=== PATIENT | female | born 1965 | race Caucasian/White ===

== ENCOUNTER → 2016-12-21 | Outpatient (CLI) | payer MEDICARE, MEDICAID ==
--- NOTE | 2017-01-04 16:02 | WOMENS IMAGING REPORT ---
EXAM DESCRIPTION: BILAT SCREENING MAMMO W/CAD COMPLETED DATE/TIME: 12/21/2016 2:38 pm REASON FOR STUDY: Z12.31, ROUTINE SCREENING MAMMO Z12.31 ENCNTR SCREEN MAMMOGRAM FOR MALIGNANT NEOP LASM OF REFUGIO COMPARISON: None. TECHNIQUE: Standard craniocaudal and mediolateral oblique views of each breast recorded using [employer] acquisition. LIMITATIONS: None. FINDINGS: RIGHT BREAST MASSES: No suspicious masses. CALCIFICATIONS: No new or suspicious calcifications. ARCHITECTURAL DISTORTION: None. DEVELOPING DENSITY: None. ASYMMETRY: None noted. OTHER: No other significant findings. LEFT BREAST MASSES: Indistinct mass in the upper-outer breast, seen on the MLO view, located 9 cm from the nipple . CALCIFICATIONS: No new or suspicious calcifications. ARCHITECTURAL DISTORTION: None. DEVELOPING DENSITY: None. ASYMMETRY: None noted. OTHER: No other significant findings. Read with the assistance of CAD. .[facility] - R2 Cenova Version 1.3 .[facility] - R2 Cenova Version 1.3 .[facility] - R2 Cenova Version 2.4 .[facility] - R2 Cenova Version 2.4 .[facility] - R2 Hospital [employer] Version 9.2 IMPRESSION: Indistinct mass in the upper-outer left breast. No worrisome mammographic findings in t he right breast. BREAST DENSITY: c. The breasts are heterogeneously dense, which may obscure small masses. BIRAD: 0 Incomplete: Needs Additional Imaging Evaluation and/or prior Mammograms for Comparison. RECOMMENDATION: RECOMMENDED FOLLOW-UP: Recommend additional evaluation with compression views, tomos ynthesis imaging, and ultrasound of the left breast. Recommend routine screening mammography of the right breast. The patient will be contacted for additional imaging. COMMENT: The patient has been notified of the results by letter per SA requirements. Additional no tification policies are in place for contacting patient with suspicious or incomplete findings. Quality ID #[id number]: The [employer] recommends an annual screening mammogram for women aged 40 years or over. This facility utilizes a reminder system to ensure that all patients receive reminder letters, and/or direct phone calls for appointments. This includes reminders for routine scr eening mammograms, diagnostic mammograms, or other Breast Imaging Interventions when appropriate. Th is patient will be placed in the appropriate reminder system. The [employer] (ACR) has developed recommendations for screening MRI of the breast s in certain patient populations, to be used in conjunction with mammography. Breast MRI surveillanc e may be appropriate for women with more than 20% lifetime risk of developing breast cancer as deter mined by genetic testing, significant family history of the disease, or history of mantle radiation f or Hodgkins Disease. ACR Practice Guidelines 2008. TECHNICAL DOCUMENTATION: FINDING NUMBER: (1) ASSESSMENT: (1) JOB ID: [id number] [employer]- All Rights Reserved
== END ==
LOC: WI 13:48
PROVIDERS: ATTEND Family Medicine
DX: Z12.31 Encounter for screening mammogram for malignant neoplasm of breast (principal)
CPT/HCPCS: 77067; G0202

== ENCOUNTER 2017-07-24 16:56 | Emergency (ER) | payer OTHER, MEDICAID ==
[2017-07-24] MEDS ORDERED: DIPH/PERTUSS(ACELL)/TETANUS VAC/PF 0.5 ML SYR (>=10YO) IM ONE (17:56)
--- NOTE | 2017-07-24 17:57 | ER Document Report ---
ED Medical Screen (RME) - General Chief Complaint: Leg Injury Stated Complaint: LEG INJURY Time Seen by Provider: 07/24/17 17:51 Mode of Arrival: Ambulatory Information source: Patient Notes: 52-year-old female extensive history of psychiatric issues presents with complaints of right anterior calf laceration the 30 last night. Patient unsure of tetanus status I have greeted and performed a rapid initial assessment of this patient. A comprehensive ED assessment and evaluation of the patient, analysis of test results and completion of the medical decision making process will be conducted by additional ED providers. PHYSICAL EXAMINATION: GENERAL: Well-appearing, well-nourished and in no acute distress. HEAD: Atraumatic, normocephalic. EYES: Pupils equal round extraocular movements intact, conjunctiva are normal. ENT: Nares patent NECK: Normal range of motion LUNGS: No respiratory distress Musculoskeletal: Normal range of motion PSYCH: anxious, rapid speech SKIN: right naterior thigh laceration TRAVEL OUTSIDE OF THE [place] IN LAST 30 DAYS: No - Related Data Allergies/Adverse Reactions: aspirin Allergy (Verified 07/24/17 17:04) Past Medical History Neurological Medical History: Reports: Hx Cerebrovascular Accident Past Surgical History: Reports: Hx Hysterectomy, Hx Orthopedic Surgery - Immunizations Hx Diphtheria, Pertussis, Tetanus Vaccination: Yes Physical Exam - Vital signs Vitals: Temp Pulse Resp BP Pulse Ox 98.4 F 72 20 109/72 91 L 07/24/17 17:13 07/24/17 17:13 07/24/17 17:13 07/24/17 17:13 07/24/17 17:13 Course - Vital Signs Vital signs: Temp Pulse Resp BP Pulse Ox 98.4 F 72 20 109/72 91 L 07/24/17 17:13 07/24/17 17:13 07/24/17 17:13 07/24/17 17:13 07/24/17 17:13
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
[2017-07-24] MEDS ORDERED: LIDOCAINE 1% INJ-PF (10 MG/ML) 30 ML SDV INJ ONE (18:54)
[2017-07-24] MEDS ORDERED: HYDROCODONE/ACETAMINOPHEN 5-325 MG TABLET PO ONE (19:00)
--- NOTE | 2017-07-24 19:35 | RADIOLOGY REPORT (SQ) ---
EXAM DESCRIPTION: ELBOW RIGHT AP/LAT COMPLETED DATE/TIME: 07/24/2017 7:18 pm REASON FOR STUDY: fracture COMPARISON: None. NUMBER OF VIEWS: Two views right elbow. LIMITATIONS: None. FINDINGS: There is no acute or significant bone, joint or soft tissue abnormality. OTHER: No other significant finding. IMPRESSION: NORMAL STUDY. TECHNICAL DOCUMENTATION: JOB ID: [id number]
[2017-07-25 00:31] VITALS: BP 106/75
== END 2017-07-25 00:30 | disposition home or self-care (01) ==
LOC: ER 16:56
DX: S86.921A Laceration of unspecified muscle(s) and tendon(s) at lower leg level, right leg, initial encounter (principal); S81.811A Laceration without foreign body, right lower leg, initial encounter; S50.01XA Contusion of right elbow, initial encounter; S00.12XA Contusion of left eyelid and periocular area, initial encounter; S00.83XA Contusion of other part of head, initial encounter; X58.XXXA Exposure to other specified factors, initial encounter; Y92.009 Unspecified place in unspecified non-institutional (private) residence as the place of occurrence of the external cause; Z23 Encounter for immunization; Z88.6 Allergy status to analgesic agent; Z87.891 Personal history of nicotine dependence
CPT/HCPCS: 99283; 90471; 73070; 12002; J3490; 90715

== ENCOUNTER → 2017-09-27 | Outpatient (CLI) | payer OTHER, MEDICAID ==
--- NOTE | 2017-09-27 13:28 | WOMENS IMAGING REPORT ---
EXAM DESCRIPTION: BONE DENSITY HIP/SPINE COMPLETED DATE/TIME: 09/27/2017 1:19 pm REASON FOR STUDY: OSTEOPOROSIS M81.0 AGE-RELATED OSTEOPOROSIS W/O CURRENT PATHOLOGICAL FRAC COMPARISON: None. TECHNIQUE: Dual-Energy X-ray Absorptiometry (DEXA) of the AP Spine and Hip. LIMITATIONS: None. FINDINGS: LUMBAR SPINE: The bone mineral density (BMD) measured from L1-L4 in the AP projection correlates with a T-score of -1.6, which is osteopenia as defined by the World Health Organization. HIP: The bone mineral density (BMD) measured in the left hip correlates with a T-score of -1.1, which is o steopenia as defined by the World Health Organization. IMPRESSION: 1. LUMBAR SPINE: OSTEOPENIA. 2. HIP: OSTEOPENIA. COMMENT: The World Health Organization defines low BMD as follows: T-score: Normal: Greater than -1.0 Osteopenia: Between -1.0 and -2.5 Osteoporosis: Less than -2.5 without fractures Established osteoporosis: Less than -2.5 with fractures In general, you may wish to consider: Diagnosis Treatment Follow-up DEXA Normal BMD Prevention 2-3 years Osteopenia Prevention/Therapy 1-2 years Osteoporosis Therapy Yearly TECHNICAL DOCUMENTATION: JOB ID: [id number] [employer]- All Rights Reserved Reading location - IP/workstation name: [email or web address]
== END ==
LOC: WI 13:00
PROVIDERS: ATTEND Family Medicine
DX: M81.0 Age-related osteoporosis without current pathological fracture (principal)
CPT/HCPCS: 77080

== ENCOUNTER 2018-03-16 16:57 | Emergency (ER) | payer OTHER, MEDICARE, MEDICAID ==
[2018-03-16 17:23] VITALS: BP 118/88
[2018-03-16] MEDS ORDERED: DIAZEPAM 5 MG TABLET PO ONE (20:21)
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
== END 2018-03-17 08:41 | disposition home or self-care (01) ==
LOC: ER 16:57
DX: F41.9 Anxiety disorder, unspecified (principal); Z59.0 Homelessness; F17.200 Nicotine dependence, unspecified, uncomplicated
CPT/HCPCS: 99284

== ENCOUNTER 2018-03-18 14:50 | Emergency (ER) | payer MEDICARE, MEDICAID ==
--- NOTE | 2018-03-18 15:19 | ER Document Report ---
ED Medical Screen (RME) - General Chief Complaint: Knee Injury Stated Complaint: COUGH Time Seen by Provider: 03/18/18 15:17 Mode of Arrival: Medic Information source: Patient TRAVEL OUTSIDE OF THE [place] IN LAST 30 DAYS: No - HPI Patient complains to provider of: L kneee pain; cough Onset: Other - pt states she fell several weeks ago and still has L knee pain. Also c/o recurrent cough. Denies fever - Related Data Allergies/Adverse Reactions: aspirin Allergy (Verified 03/18/18 14:52) Past Medical History Neurological Medical History: Reports: Hx Cerebrovascular Accident Renal/ Medical History: Denies: Hx Peritoneal Dialysis Past Surgical History: Reports: Hx Hysterectomy, Hx Orthopedic Surgery - Immunizations Hx Diphtheria, Pertussis, Tetanus Vaccination: Yes Physical Exam - Vital signs Vitals: Temp Pulse Resp BP Pulse Ox 98.3 F 71 20 94/59 L 99 03/18/18 15:06 03/18/18 15:06 03/18/18 15:06 03/18/18 15:06 03/18/18 15:06 Course - Vital Signs Vital signs: Temp Pulse Resp BP Pulse Ox 98.3 F 71 20 94/59 L 99 03/18/18 15:06 03/18/18 15:06 03/18/18 15:06 03/18/18 15:06 03/18/18 15:06 Doctor's Discharge - Discharge Referrals: AUGUSTIN MCCLELLAND MD [Primary Care Provider] - Follow up as needed
[2018-03-18 16:13] LABS: ABSOLUTE EOSINOPHILS # (AUTO) 0.1 10^3/uL (0.0-0.6); ABSOLUTE LYMPHOCYTES (AUTO) 1.4 10^3/uL (0.5-4.7); ABSOLUTE MONOCYTES (AUTO) 0.4 10^3/uL (0.1-1.4); ABSOLUTE NEUT (AUTO) 2.3 10^3/uL (1.7-8.2); BASOPHILS % (AUTO) 0.6 % (0-2); EOSINOPHILS % (AUTO) 1.6 % (0-6); HEMATOCRIT 41.7 % (36.0-47.0); HEMOGLOBIN 13.7 g/dL (12.0-15.5); LYMPHOCYTES % (AUTO) 33.4 % (13-45); MEAN CORPUSCULAR HEMOGLOBIN 31.5 pg (27.0-33.4); MEAN CORPUSCULAR HGB CONC 32.8 g/dL (32.0-36.0); MEAN CORPUSCULAR VOLUME 96 fl (80-97); MONOCYTES % (AUTO) 8.7 % (3-13); PLATELET COUNT 255 10^3/uL (150-450); RED BLOOD COUNT 4.35 10^6/uL (3.72-5.28); RED CELL DISTRIBUTION WIDTH 15.2 % (11.5-14.0); SEGMENTED NEUTROPHILS % (AUTO) 55.7 % (42-78); TOTAL CELLS COUNTED % (AUTO) 100 %; WHITE BLOOD COUNT 4.1 10^3/uL (4.0-10.5)
--- NOTE | 2018-03-18 16:23 | RADIOLOGY REPORT (SQ) ---
EXAM DESCRIPTION: KNEE LEFT 3 VIEWS COMPLETED DATE/TIME: 03/18/2018 4:05 pm REASON FOR STUDY: fall COMPARISON: None. EXAM PARAMETERS: NUMBER OF VIEWS: Three views. TECHNIQUE: AP, lateral and oblique radiographic images acquired of the left knee. LIMITATIONS: None. FINDINGS: MINERALIZATION: Normal. BONES: No acute fracture or dislocation. No worrisome bone lesions. JOINTS: No effusion. SOFT TISSUES: No significant soft tissue swelling. No radiopaque foreign body. OTHER: No other significant finding. IMPRESSION: NO FRACTURE. TECHNICAL DOCUMENTATION: JOB ID: [id number] [id number] 2010 [employer]- All Rights Reserved Reading location - IP/workstation name: [email or web address]
--- NOTE | 2018-03-18 16:24 | RADIOLOGY REPORT (SQ) ---
EXAM DESCRIPTION: CHEST 2 VIEWS COMPLETED DATE/TIME: 03/18/2018 4:05 pm REASON FOR STUDY: fall COMPARISON: None. EXAM PARAMETERS: NUMBER OF VIEWS: two views TECHNIQUE: Digital Frontal and Lateral radiographic views of the chest acquired. RADIATION DOSE: NA LIMITATIONS: none FINDINGS: LUNGS AND PLEURA: No consolidation, masses or pneumothorax. No pleural effusion. MEDIASTINUM AND HILAR STRUCTURES: No masses or contour abnormalities. HEART AND VASCULAR STRUCTURES: Heart normal size. No evidence for failure. BONES: No acute findings. HARDWARE: None in the chest. OTHER: No other significant finding. IMPRESSION: NO ACUTE RADIOGRAPHIC FINDING IN THE CHEST. TECHNICAL DOCUMENTATION: JOB ID: [id number] [place]-72 2010 [employer]- All Rights Reserved Reading location - IP/workstation name: [email or web address]
[2018-03-18 16:28] LABS: ALANINE AMINOTRANSFERASE 25 U/L (9-52); ALKALINE PHOSPHATASE 45 U/L (38-126); ANION GAP 9 (5-19); ASPARTATE AMINO TRANSFERASE 24 U/L (14-36); BILIRUBIN,DIRECT 0.1 mg/dL (0.0-0.4); BILIRUBIN,TOTAL 0.5 mg/dL (0.2-1.3); BLOOD UREA NITROGEN 15 mg/dL (7-20); CALCIUM 9.4 mg/dL (8.4-10.2); CARBON DIOXIDE 21 mmol/L (22-30); CHLORIDE 111 mmol/L (98-107); GLUCOSE 78 mg/dL (75-110); POTASSIUM 4.4 mmol/L (3.6-5.0); SODIUM 140.6 mmol/L (137-145); TOTAL PROTEIN 6.7 g/dL (6.3-8.2)
--- NOTE | 2018-03-18 17:45 | ER Document Report ---
ED General - General Chief Complaint: Knee Injury Stated Complaint: COUGH Time Seen by Provider: 03/18/18 15:17 Mode of Arrival: Medic Information source: Patient Notes: Patient is a 52-year-old female with past medical history as recorded including multiple bilateral knee surgeries, foot surgeries, left arm surgeries, traumatic brain injury, post traumatic stress disorder, and a chronic cough who states around 1-1/2 weeks ago she was walking and fell onto her left knee. Patient has a prosthetic right knee. She denies any pain to her right knee. She has been walking on this left knee but states it is painful. She denies pain to any other location. In triage she also endorsed a chronic nonproductive cough. She denies any chest pain, leg swelling, or fever. TRAVEL OUTSIDE OF THE [place] IN LAST 30 DAYS: No - HPI Onset: Other - See above Onset/Duration: Sudden Quality of pain: Achy Severity: Mild Pain Level: 1 Associated symptoms: Other - See above Exacerbated by: Denies Relieved by: Denies Similar symptoms previously: Yes Recently seen / treated by doctor: No - Related Data Allergies/Adverse Reactions: aspirin Allergy (Verified 03/18/18 14:52) Past Medical History - General Information source: Patient - Social History Smoking Status: Current Every Day Smoker Chew tobacco use (# tins/day): - Normally Vape Frequency of alcohol use: None Drug Abuse: None Family History: Reviewed & Not Pertinent Patient has suicidal ideation: No Patient has homicidal ideation: No Neurological Medical History: Reports: Hx Cerebrovascular Accident Renal/ Medical History: Denies: Hx Peritoneal Dialysis Past Surgical History: Reports: Hx Hysterectomy, Hx Orthopedic Surgery - Immunizations Hx Diphtheria, Pertussis, Tetanus Vaccination: Yes Review of Systems - Review of Systems Constitutional: denies: Fever EENT: Nose congestion. denies: Eye discharge, Nose discharge Cardiovascular: denies: Chest pain, Palpitations Respiratory: Cough. denies: Short of breath Gastrointestinal: denies: Vomiting Genitourinary: denies: Dysuria Musculoskeletal: denies: Leg swelling Skin: Other - no hives. denies: Rash Neurological/Psychological: Other - no slurred speech -: Yes All other systems reviewed and negative Physical Exam - Vital signs Vitals: Temp Pulse Resp BP Pulse Ox 98.3 F 71 20 94/59 L 99 03/18/18 15:06 03/18/18 15:06 03/18/18 15:06 03/18/18 15:06 03/18/18 15:06 Notes: Reviewed vital signs and nursing note as charted by RN. CONSTITUTIONAL: Alert and oriented and responds appropriately to questions. Well -appearing; well-nourished; partner dog at bedside in the bed HEAD: Normocephalic; atraumatic EYES: PERRL; Conjunctivae clear, sclerae non-icteric ENT: Normal nose; no rhinorrhea; moist mucous membranes NECK: Supple without meningismus; non-tender; no cervical lymphadenopathy, no masses CARD: Regular rate and rhythm; no murmurs; symmetric distal pulses RESP: Normal chest excursion without splinting or tachypnea; breath sounds clear and equal bilaterally; no wheezes, no rhonchi, no rales ABD/GI: Normal bowel sounds; non-distended; soft, non-tender BACK: The back appears normal and is non-tender to palpation, there is no CVA tenderness EXT: Normal ROM in all joints; some mild tenderness to palpation around the left knee with no obvious deformity or ligamentous laxity SKIN: No acute lesions noted NEURO: Moves all extremities equally; Motor and sensory function intact PSYCH: The patient's mood and manner are appropriate. Grooming and personal hygiene are appropriate. Course - Re-evaluation Re-evalutation: Given the history and physical examination and x-ray of the knee, chest, and laboratory work ordered in triage. Patient has no chest pain. No calf pain or leg swelling. I do believe pulmonary embolism and dissection to be unlikely. 03/18/18 17:44 X-rays of the chest and knee as recorded. No obvious pneumonias. No obvious lung lesions present. No obvious knee fractures. Patient is comfortable going home. I believe this is a reasonable option. Patient will be discharged home with strict return precautions. Orthopedic follow-up has been provided. - Vital Signs Vital signs: Temp Pulse Resp BP Pulse Ox 98.3 F 71 20 94/59 L 99 03/18/18 15:06 03/18/18 15:06 03/18/18 15:06 03/18/18 15:06 03/18/18 15:06 - Laboratory Result Diagrams: 03/18/18 15:35 03/18/18 15:35 Laboratory results interpreted by me: 03/18/18 03/18/18 15:35 15:35 RDW 15.2 H Chloride 111 H Carbon Dioxide 21 L Discharge - Discharge Clinical Impression: Cough Contusion of left knee Qualifiers: Encounter type: initial encounter Qualified Code(s): S80.02XA - Contusion of left knee, initial encounter Condition: Good Disposition: HOME, SELF-CARE Additional Instructions: Come back immediately for any worsening knee pain, knee swelling, redness, fever , vomiting, worsening cough, chest pain, persistent vomiting, shortness of breath, or any other acute problems. Please follow-up with your primary care physician, your orthopedic surgeon, or with the orthopedic surgeon we have referred you to. Referrals: AUGUSTIN MCCLELLAND MD [Primary Care Provider] - Follow up as needed KIM MARTINEZ MD [ACTIVE STAFF] - Follow up as needed
[2018-03-18 18:17] VITALS: BP 92/60
== END 2018-03-18 18:16 | disposition home or self-care (01) ==
LOC: ER 14:50
DX: S80.02XA Contusion of left knee, initial encounter (principal); W18.30XA Fall on same level, unspecified, initial encounter; F17.200 Nicotine dependence, unspecified, uncomplicated; Z88.6 Allergy status to analgesic agent; Z90.710 Acquired absence of both cervix and uterus
CPT/HCPCS: 36415; 71046; 80053; 85025; 99284

== ENCOUNTER → 2018-09-21 | Outpatient (CLI) | payer MEDICARE, MEDICAID ==
--- NOTE | 2018-09-21 12:04 | RADIOLOGY REPORT (SQ) ---
EXAM DESCRIPTION: HIP RIGHT AP/LATERAL COMPLETED DATE/TIME: 09/21/2018 11:55 am REASON FOR STUDY: INJURY OF RT ELBOW;ILIAC CREST BONE PAIN;INJURY OF RT WRIST M89.8X8 OTHER SPECIFI ED DISORDERS OF BONE, OTHER SITE S59.901A UNSPECIFIED INJURY OF RIGHT ELBOW, INITIAL ENCOUNTE S69.91 XA UNSP INJURY OF RIGHT WRIST, HAND AND FINGER(S), INI COMPARISON: None. NUMBER OF VIEWS: Two views. TECHNIQUE: AP and frog-leg view of the right hip. LIMITATIONS: None. FINDINGS: MINERALIZATION: Normal. RIGHT HIP: No fracture or dislocation. No worrisome bone lesions. OPPOSITE HIP: No fracture or dislocation. No worrisome bone lesions. SOFT TISSUES: No findings. OTHER: No other significant finding. IMPRESSION: NEGATIVE STUDY OF THE RIGHT HIP. NO RADIOGRAPHIC EVIDENCE OF ACUTE INJURY. COMMENT: Pelvic fractures are often occult on plain radiographs. If strong clinical suspicion for f racture, recommend CT or MR. TECHNICAL DOCUMENTATION: JOB ID: [id number] [employer]- All Rights Reserved Reading location - IP/workstation name: [email or web address]
--- NOTE | 2018-09-21 12:06 | RADIOLOGY REPORT (SQ) ---
EXAM DESCRIPTION: WRIST RIGHT 3 VIEWS COMPLETED DATE/TIME: 09/21/2018 11:55 am REASON FOR STUDY: INJURY OF RT ELBOW;ILIAC CREST BONE PAIN;INJURY OF RT WRIST M89.8X8 OTHER SPECIFI ED DISORDERS OF BONE, OTHER SITE S59.901A UNSPECIFIED INJURY OF RIGHT ELBOW, INITIAL ENCOUNTE S69.91 XA UNSP INJURY OF RIGHT WRIST, HAND AND FINGER(S), INI COMPARISON: None. NUMBER OF VIEWS: Three views. TECHNIQUE: AP, lateral, and oblique radiographic images acquired of the right wrist. LIMITATIONS: None. FINDINGS: MINERALIZATION: Normal. BONES: No acute fracture or dislocation. No worrisome bone lesions. Normal alignment. SOFT TISSUES: No soft tissue swelling. No foreign body. OTHER: There are postsurgical changes in the 1st carpal/metacarpal joint. IMPRESSION: No acute findings. TECHNICAL DOCUMENTATION: JOB ID: [id number] [employer]- All Rights Reserved Reading location - IP/workstation name: [email or web address]
--- NOTE | 2018-09-21 12:07 | RADIOLOGY REPORT (SQ) ---
EXAM DESCRIPTION: ELBOW RIGHT >2 VIEWS COMPLETED DATE/TIME: 09/21/2018 11:55 am REASON FOR STUDY: INJURY OF RT ELBOW;ILIAC CREST BONE PAIN;INJURY OF RT WRIST M89.8X8 OTHER SPECIFI ED DISORDERS OF BONE, OTHER SITE S59.901A UNSPECIFIED INJURY OF RIGHT ELBOW, INITIAL ENCOUNTE S69.91 XA UNSP INJURY OF RIGHT WRIST, HAND AND FINGER(S), INI COMPARISON: 07/24/2017 NUMBER OF VIEWS: Four views. TECHNIQUE: AP, lateral, and both oblique radiographic images acquired of the right elbow. LIMITATIONS: None. FINDINGS: MINERALIZATION: Normal. BONES: No acute fracture or dislocation. No worrisome bone lesions. JOINT: No effusion. SOFT TISSUES: No soft tissue swelling. No foreign body. OTHER: No other significant finding. IMPRESSION: NEGATIVE STUDY OF THE RIGHT ELBOW. NO RADIOGRAPHIC EVIDENCE OF ACUTE INJURY. TECHNICAL DOCUMENTATION: JOB ID: [id number] [employer]- All Rights Reserved Reading location - IP/workstation name: [email or web address]
== END ==
LOC: OD 11:01
PROVIDERS: ATTEND Family Medicine
DX: M89.8X8 Other specified disorders of bone, other site (principal); S59.901A Unspecified injury of right elbow, initial encounter; S69.91XA Unspecified injury of right wrist, hand and finger(s), initial encounter; X58.XXXA Exposure to other specified factors, initial encounter

== ENCOUNTER 2019-08-08 16:31 | Emergency (ER) | payer MEDICARE, MEDICAID ==
--- NOTE | 2019-08-08 18:27 | ER Document Report ---
ED Fall - General Chief Complaint: Fall Injury Stated Complaint: FALL/HIP PAIN Time Seen by Provider: 08/08/19 18:19 Primary Care Provider: AUGUSTIN MCCLELLAND MD [Primary Care Provider] - Follow up as needed TRAVEL OUTSIDE OF THE [place] IN LAST 30 DAYS: No - Related data Allergies/Adverse Reactions: aspirin Allergy (Verified 08/08/19 18:19) Past Medical History - General Information source: Patient - Social History Family History: Reviewed & Not Pertinent - Past Medical History Cardiac Medical History: Reports: None Pulmonary Medical History: Reports: Hx Intubation, Hx Respiratory Failure EENT Medical History: Reports: None Neurological Medical History: Reports: Hx Cerebrovascular Accident - X2 Endocrine Medical History: Reports: None Renal/ Medical History: Reports: Hx Ovarian Cysts, Other - Endometriosis Malignancy Medical History: Reports: Hx Skin Cancer Past Surgical History: Reports: Hx Hysterectomy, Hx Orthopedic Surgery - Immunizations Hx Diphtheria, Pertussis, Tetanus Vaccination: Yes Physical Exam - Vital signs Vitals: Temp Pulse Resp BP Pulse Ox 98.2 F 101 H 16 139/83 H 95 08/08/19 17:08 08/08/19 17:08 08/08/19 17:08 08/08/19 17:08 08/08/19 17:08 Course - Vital Signs Vital signs: Temp Pulse Resp BP Pulse Ox 98.2 F 101 H 16 139/83 H 95 08/08/19 17:08 08/08/19 17:08 08/08/19 17:08 08/08/19 17:08 08/08/19 17:08 Discharge - Discharge Referrals: AUGUSTIN MCCLELLAND MD [Primary Care Provider] - Follow up as needed
--- NOTE | 2019-08-08 18:27 | ER Document Report ---
ED Medical Screen (RME) - General Chief Complaint: Fall Injury Stated Complaint: FALL/HIP PAIN Time Seen by Provider: 08/08/19 18:19 Primary Care Provider: AUGUSTIN MCCLELLAND MD [Primary Care Provider] - Follow up as needed TRAVEL OUTSIDE OF THE [place] IN LAST 30 DAYS: No - Related Data Allergies/Adverse Reactions: aspirin Allergy (Verified 08/08/19 18:19) Past Medical History - Past Medical History Cardiac Medical History: Reports: None Pulmonary Medical History: Reports: Hx Intubation, Hx Respiratory Failure EENT Medical History: Reports: None Neurological Medical History: Reports: Hx Cerebrovascular Accident - X2 Endocrine Medical History: Reports: None Renal/ Medical History: Reports: Hx Ovarian Cysts, Other - Endometriosis Malignancy Medical History: Reports: Hx Skin Cancer GI Medical History: Reports: Hx Endoscopy Musculoskeltal Medical History: Reports Hx Musculoskeletal Deformity, Reports Hx Musculoskeletal Trauma Skin Medical History: Reports None Traumatic Medical History: Reports: Hx Fractures, Hx Pneumothorax Infectious Medical History: Reports: None Past Surgical History: Reports: Hx Hysterectomy, Hx Orthopedic Surgery - 2 allografts left ankle, total reconstruction, left wrist, bilateral thumbs, Other - Chest tubes - Immunizations Immunizations up to date: Yes Hx Diphtheria, Pertussis, Tetanus Vaccination: No Physical Exam - Vital signs Vitals: Temp Pulse Resp BP Pulse Ox 98.2 F 101 H 16 139/83 H 95 08/08/19 17:08 08/08/19 17:08 08/08/19 17:08 08/08/19 17:08 08/08/19 17:08 Course - Vital Signs Vital signs: Temp Pulse Resp BP Pulse Ox 98.2 F 101 H 16 139/83 H 95 08/08/19 17:08 08/08/19 17:08 08/08/19 17:08 08/08/19 17:08 08/08/19 17:08 Doctor's Discharge - Discharge Referrals: AUGUSTIN MCCLELLAND MD [Primary Care Provider] - Follow up as needed
[2019-08-08] MEDS ORDERED: OXYCODONE-ACETAMINOPHEN 5-325 MG TABLET PO ONE (18:35)
[2019-08-08 19:20] LABS: ABSOLUTE LYMPHOCYTES (AUTO) 1.5 10^3/uL (0.5-4.7); ABSOLUTE MONOCYTES (AUTO) 0.4 10^3/uL (0.1-1.4); ABSOLUTE NEUT (AUTO) 4.9 10^3/uL (1.7-8.2); BASOPHILS % (AUTO) 0.5 % (0-2); EOSINOPHILS % (AUTO) 0.6 % (0-6); HEMOGLOBIN 15.2 g/dL (12.0-15.5); LYMPHOCYTES % (AUTO) 21.3 % (13-45); MEAN CORPUSCULAR HEMOGLOBIN 32.3 pg (27.0-33.4); MEAN CORPUSCULAR HGB CONC 34.6 g/dL (32.0-36.0); MEAN CORPUSCULAR VOLUME 93 fl (80-97); MONOCYTES % (AUTO) 6.1 % (3-13); PLATELET COUNT 287 10^3/uL (150-450); RED BLOOD COUNT 4.72 10^6/uL (3.72-5.28); RED CELL DISTRIBUTION WIDTH 14.8 % (11.5-14.0); SEGMENTED NEUTROPHILS % (AUTO) 71.5 % (42-78); TOTAL CELLS COUNTED % (AUTO) 100 %; WHITE BLOOD COUNT 6.8 10^3/uL (4.0-10.5)
[2019-08-08 19:35] LABS: ALBUMIN 5.1 g/dL (3.5-5.0); ALKALINE PHOSPHATASE 64 U/L (38-126); ANION GAP 12 (5-19); ASPARTATE AMINO TRANSFERASE 26 U/L (14-36); BILIRUBIN,DIRECT 0.2 mg/dL (0.0-0.4); BILIRUBIN,TOTAL 0.6 mg/dL (0.2-1.3); BLOOD UREA NITROGEN 18 mg/dL (7-20); CALCIUM 9.9 mg/dL (8.4-10.2); CARBON DIOXIDE 20 mmol/L (22-30); CHLORIDE 108 mmol/L (98-107); GLUCOSE 101 mg/dL (75-110); POTASSIUM 4.5 mmol/L (3.6-5.0); TOTAL PROTEIN 8.1 g/dL (6.3-8.2)
--- NOTE | 2019-08-08 19:50 | RADIOLOGY REPORT (SQ) ---
EXAM DESCRIPTION: KNEE RIGHT 4 VIEWS COMPLETED DATE/TIME: 08/08/2019 7:37 pm REASON FOR STUDY: Fall pain injury COMPARISON: None. NUMBER OF VIEWS: Four views. TECHNIQUE: AP, lateral, and both oblique radiographic images acquired of the right knee. LIMITATIONS: None. FINDINGS: MINERALIZATION: Normal. BONES: No fracture or dislocation. Patellofemoral arthroplasty. JOINT: No effusion. SOFT TISSUES: No soft tissue swelling. No radio-opaque foreign body. OTHER: No other significant finding. IMPRESSION: NEGATIVE STUDY OF THE RIGHT KNEE. NO RADIOGRAPHIC EVIDENCE OF ACUTE INJURY. TECHNICAL DOCUMENTATION: JOB ID: [id number] 2010 [employer]- All Rights Reserved Reading location - IP/workstation name: [email or web address]
--- NOTE | 2019-08-08 19:51 | RADIOLOGY REPORT (SQ) ---
EXAM DESCRIPTION: HIP RIGHT AP/LATERAL COMPLETED DATE/TIME: 08/08/2019 7:37 pm REASON FOR STUDY: Fall pain injury COMPARISON: 09/21/2018 NUMBER OF VIEWS: Two views. TECHNIQUE: AP pelvis and additional frog-leg view of the right hip. LIMITATIONS: None. FINDINGS: MINERALIZATION: Normal. RIGHT HIP: No fracture or dislocation. No worrisome bone lesions. LEFT HIP: No fracture or dislocation. No worrisome bone lesions. PUBIS AND ISCHIUM: No fracture. PELVIS: No fracture. SACRUM: No fracture or dislocation. No worrisome bone lesions. LOWER LUMBAR SPINE: No fracture or dislocation. No worrisome bone lesions. No significant disc disea se. SOFT TISSUES: No findings. OTHER: No other significant finding. IMPRESSION: NEGATIVE STUDY OF THE RIGHT HIP. NO RADIOGRAPHIC EVIDENCE OF ACUTE INJURY. TECHNICAL DOCUMENTATION: JOB ID: [id number] 2010 [employer]- All Rights Reserved Reading location - IP/workstation name: [email or web address]
--- NOTE | 2019-08-08 19:51 | RADIOLOGY REPORT (SQ) ---
EXAM DESCRIPTION: WRIST RIGHT 3 VIEWS COMPLETED DATE/TIME: 08/08/2019 7:37 pm REASON FOR STUDY: Fall pain injury multiple injuries COMPARISON: 09/21/2018 NUMBER OF VIEWS: Three views. TECHNIQUE: AP, lateral, and oblique radiographic images acquired of the right wrist. LIMITATIONS: None. FINDINGS: MINERALIZATION: Normal. BONES: No acute fracture or dislocation. Prior ligament repair at the 1st metacarpophalangeal joint. SOFT TISSUES: No soft tissue swelling. No foreign body. OTHER: No other significant finding. IMPRESSION: NEGATIVE STUDY OF THE RIGHT WRIST. NO RADIOGRAPHIC EVIDENCE OF ACUTE INJURY. TECHNICAL DOCUMENTATION: JOB ID: [id number] 2010 [employer]- All Rights Reserved Reading location - IP/workstation name: [email or web address]
--- NOTE | 2019-08-08 19:53 | RADIOLOGY REPORT (SQ) ---
EXAM DESCRIPTION: FINGER RIGHT COMPLETED DATE/TIME: 08/08/2019 7:37 pm REASON FOR STUDY: fall pain injury finger COMPARISON: None. NUMBER OF VIEWS: Three views. TECHNIQUE: AP, lateral, and oblique images acquired of the right fourth finger. LIMITATIONS: None. FINDINGS: MINERALIZATION: Normal. BONES: No acute fracture or dislocation. No worrisome bone lesions. SOFT TISSUES: No soft tissue swelling. No foreign body. OTHER: No other significant finding. IMPRESSION: NO RADIOGRAPHIC EVIDENCE OF ACUTE INJURY. COMMENT: SITE OF TRAUMA/COMPLAINT MARKED/STAMP COMPLETED: Yes TECHNICAL DOCUMENTATION: JOB ID: [id number] 2010 [employer]- All Rights Reserved Reading location - IP/workstation name: [email or web address]
--- NOTE | 2019-08-08 19:55 | RADIOLOGY REPORT (SQ) ---
EXAM DESCRIPTION: ANKLE RIGHT COMPLETE COMPLETED DATE/TIME: 08/08/2019 7:37 pm REASON FOR STUDY: Fall pain injury COMPARISON: None. NUMBER OF VIEWS: Three views. TECHNIQUE: AP, lateral, and oblique radiographic images acquired of the right ankle. LIMITATIONS: None. FINDINGS: MINERALIZATION: Normal. BONES: No acute fracture or dislocation. No worrisome bone lesions. JOINTS: No effusions. SOFT TISSUES: No soft tissue swelling. No foreign body. OTHER: No other significant finding. IMPRESSION: NEGATIVE STUDY OF THE RIGHT ANKLE. NO RADIOGRAPHIC EVIDENCE OF ACUTE INJURY. TECHNICAL DOCUMENTATION: JOB ID: [id number] 2010 [employer]- All Rights Reserved Reading location - IP/workstation name: [email or web address]
--- NOTE | 2019-08-08 19:57 | RADIOLOGY REPORT (SQ) ---
EXAM DESCRIPTION: RIBS RIGHT W/PA CHEST COMPLETED DATE/TIME: 08/08/2019 7:37 pm REASON FOR STUDY: Fall pain injury COMPARISON: None. TECHNIQUE: Frontal view of the chest and additional views of the right ribs acquired. NUMBER OF VIEWS: Three views LIMITATIONS: None. FINDINGS: FRONTAL CXR: No pneumothorax. No pleural effusion. No atelectasis or infiltrates. RIBS: No displaced rib fractures. No lytic or blastic bony lesions. OTHER: No other significant finding. IMPRESSION: NO PNEUMOTHORAX. NO DISPLACED RIB FRACTURES. COMMENT: SITE OF TRAUMA/COMPLAINT MARKED/STAMP COMPLETED: NO. TECHNICAL DOCUMENTATION: JOB ID: [id number] 2010 [employer]- All Rights Reserved Reading location - IP/workstation name: [email or web address]
--- NOTE | 2019-08-08 19:58 | RADIOLOGY REPORT (SQ) ---
EXAM DESCRIPTION: L SPINE WHOLE COMPLETED DATE/TIME: 08/08/2019 7:37 pm REASON FOR STUDY: Fall pain injury COMPARISON: None. NUMBER OF VIEWS: Five views including obliques. TECHNIQUE: AP, lateral, oblique, and sacral radiographic images acquired of the lumbar spine. LIMITATIONS: None. FINDINGS: MINERALIZATION: Normal. SEGMENTATION: Normal. No transitional anatomy. ALIGNMENT: Levoscoliosis. VERTEBRAE: Maintained height. No fracture or worrisome bone lesion. DISCS: Mild disc narrowing at L4-5 with greater narrowing at L5-S1. Marginal osteophytes are present at L5-S1. POSTERIOR ELEMENTS: Pedicles and facets are intact. No pars defect or posterior arch defects. HARDWARE: None in the spine. PARASPINAL SOFT TISSUES: Normal. PELVIS: Intact as visualized. No fractures or worrisome bone lesions. SI joints intact. OTHER: No other significant finding. IMPRESSION: Mild scoliosis. Degenerative disc disease and spondylosis. TECHNICAL DOCUMENTATION: JOB ID: [id number] 2010 [employer]- All Rights Reserved Reading location - IP/workstation name: [email or web address]
--- NOTE | 2019-08-08 22:22 | ER Document Report ---
ED General - General Chief Complaint: Fall Stated Complaint: FALL/HIP PAIN Time Seen by Provider: 08/08/19 18:19 Primary Care Provider: AUGUSTIN MCCLELLAND MD [PEDIATRICS] - Follow up as needed TRAVEL OUTSIDE OF THE U.S. IN LAST 30 DAYS: No - HPI Notes: Patient is a 54-year-old female with a complicated medical history who presents to the emergency department for evaluation after a fall. She states that her neighbor has "an aggressive [place] Cespedes" that attacked her and her service dog while walking. She states that the dog knocked her down and kept her down. She denies any bite injury. She states she suffered an abrasion but she believes it was from the ground. She complains of pain in her right ribs, her right hip, her right lower back, her right knee, her right ankle. She currently puts her pain at a 4 out of 5. She denies hitting her head, no loss of co nsciousness. No neck pain. No numbness or tingling. She states occasionally her rib pain shoots down and her abdomen. Bearing weight or pressure seems to make her pain worse. - Related Data Allergies/Adverse Reactions: aspirin Allergy (Verified 08/08/19 18:19) Home Medications: chest tube from collapsed lung. cva x 2. intubated Past Medical History - General Information source: Patient - Social History Smoking Status: Current Every Day Smoker Chew tobacco use (# tins/day): No Frequency of alcohol use: Occasional Drug Abuse: None Family History: Reviewed & Not Pertinent Patient has suicidal ideation: No Patient has homicidal ideation: No - Past Medical History Cardiac Medical History: Reports: None Pulmonary Medical History: Reports: Hx Intubation, Hx Respiratory Failure EENT Medical History: Reports: None Neurological Medical History: Reports: Hx Cerebrovascular Accident - X2 Endocrine Medical History: Reports: None Renal/ Medical History: Reports: Hx Ovarian Cysts, Other - Endometriosis Malignancy Medical History: Reports: Hx Skin Cancer GI Medical History: Reports: Hx Endoscopy Musculoskeletal Medical History: Reports Hx Musculoskeletal Deformity, Reports Hx Musculoskeletal Trauma Skin Medical History: Reports None Traumatic Medical History: Reports: Hx Fractures, Hx Pneumothorax Infectious Medical History: Reports: None Past Surgical History: Reports: Hx Hysterectomy, Hx Orthopedic Surgery - 2 allografts left ankle, total reconstruction, left wrist, bilateral thumbs, Other - Chest tubes - Immunizations Immunizations up to date: Yes Hx Diphtheria, Pertussis, Tetanus Vaccination: No Review of Systems - Review of Systems Musculoskeletal: See HPI -: Yes All other systems reviewed and negative Physical Exam - Vital signs Vitals: Temp Pulse Resp BP Pulse Ox 98.2 F 101 H 16 139/83 H 95 08/08/19 17:08 08/08/19 17:08 08/08/19 17:08 08/08/19 17:08 08/08/19 17:08 - Notes Notes: This is a 54-year-old female who appears her stated age in no acute distress. She is mildly disheveled and smells strongly of cigarettes. She has a small superficial abrasion noted on her left hand, no other outward abrasions, ecchy sarah appreciated. Vital signs reviewed, please refer to chart. Head is normocephalic, atraumatic. Pupils equal round, reactive to light. Neck is supple without meningismus. Examination of the spine yields no midline tenderness or step-off. No paraspinal musculature tenderness is appreciated. Heart is regular rate and rhythm. Lungs are clear to auscultation bilaterally. Chest wall excursion is equal bilaterally. Patient is tender to palpation over the anterolateral inferior ribs on the right without any subcutaneous emphysema. Abdomen is soft, nontender, normoactive bowel sounds throughout. Extremities without cyanosis, clubbing. Posterior calves are nontender. Peripheral pulses are equal. Skin is warm and dry. Examination of the right lower extremity yields no obvious deformity or signs of trauma. Passive range of motion is limited secondary to pain, but no obvious deformity, neurovascularly intact distally. Patient actively moves her leg with good strength on range of motion examination. Neurovascularly intact distally. Course - Re-evaluation Re-evalutation: 08/08/19 22:21 Patient presents to the emergency department for evaluation. She had imaging as ordered through triage. Absolutely no acute findings were noted. I will send her home with a small amount of Robaxin and some pain medication. Her images are unremarkable at this time, but she is told if her pain should persist she should have another set of x-rays in 1 to 2 weeks. She voiced understanding was discharged. She is to return to the ED with worsening. - Vital Signs Vital signs: Temp Pulse Resp BP Pulse Ox 98.2 F 101 H 16 139/83 H 95 08/08/19 17:08 08/08/19 17:08 08/08/19 17:08 08/08/19 17:08 08/08/19 17:08 - Laboratory Result Diagrams: 08/08/19 18:46 08/08/19 18:46 Laboratory results interpreted by me: 08/08/19 08/08/19 18:46 18:46 RDW 14.8 H Chloride 108 H Carbon Dioxide 20 L Albumin 5.1 H - Diagnostic Test Radiology reviewed: Reports reviewed Radiology results interpreted by me: 08/08/19 22:21 Ankle X-Ray 08/08/19 18:31 IMPRESSION: NEGATIVE STUDY OF THE RIGHT ANKLE. NO RADIOGRAPHIC EVIDENCE OF ACUTE INJURY. Hip/Pelvis X-Ray 08/08/19 18:31 IMPRESSION: NEGATIVE STUDY OF THE RIGHT HIP. NO RADIOGRAPHIC EVIDENCE OF ACUTE INJURY. Knee X-Ray 08/08/19 18:31 IMPRESSION: NEGATIVE STUDY OF THE RIGHT KNEE. NO RADIOGRAPHIC EVIDENCE OF ACUTE INJURY. Lumbar Spine X-Ray 08/08/19 18:31 IMPRESSION: Mild scoliosis. Degenerative disc disease and spondylosis. Ribs w/Chest X-Ray 08/08/19 18:31 IMPRESSION: NO PNEUMOTHORAX. NO DISPLACED RIB FRACTURES. Finger X-Ray 08/08/19 18:34 IMPRESSION: NO RADIOGRAPHIC EVIDENCE OF ACUTE INJURY. Wrist X-Ray 08/08/19 18:35 IMPRESSION: NEGATIVE STUDY OF THE RIGHT WRIST. NO RADIOGRAPHIC EVIDENCE OF ACUTE INJURY. Discharge - Discharge Clinical Impression: Fall from standing Qualifiers: Encounter type: initial encounter Qualified Code(s): W19.XXXA - Unspecified fall, initial encounter Contusion of right chest wall Qualifiers: Encounter type: initial encounter Qualified Code(s): S20.211A - Contusion of right front wall of thorax, initial encounter Low back strain Qualifiers: Encounter type: initial encounter Qualified Code(s): S39.012A - Strain of muscle, fascia and tendon of lower back, initial encounter Contusion of right hip Qualifiers: Encounter type: initial encounter Qualified Code(s): S70.01XA - Contusion of right hip, initial encounter Contusion of right knee Qualifiers: Encounter type: initial encounter Qualified Code(s): S80.01XA - Contusion of right knee, initial encounter Condition: Stable Disposition: HOME, SELF-CARE Instructions: Contusion ([facility]) Additional Instructions: Rest, stay well-hydrated. Avoid bedrest. No lifting anything heavier than 5 pounds, approximately a gallon of milk. Take medications as prescribed. Watch for dizziness, drowsiness, constipation, particularly with the [place]. Follow-up with your doctor next week. Return to the emergency department if you develop worsening or new concerning symptoms of any sort. Referrals: AUGUSTIN MCCLELLAND MD [PEDIATRICS] - Follow up as needed
[2019-08-08 22:59] VITALS: BP 122/67
== END 2019-08-08 23:10 | disposition home or self-care (01) ==
LOC: ER 16:31
DX: S39.012A Strain of muscle, fascia and tendon of lower back, initial encounter (principal); S70.01XA Contusion of right hip, initial encounter; S20.211A Contusion of right front wall of thorax, initial encounter; S80.01XA Contusion of right knee, initial encounter; S60.512A Abrasion of left hand, initial encounter; R07.81 Pleurodynia; M25.551 Pain in right hip; M25.571 Pain in right ankle and joints of right foot; W54.1XXA Struck by dog, initial encounter; Y93.K1 Activity, walking an animal; M47.816 Spondylosis without myelopathy or radiculopathy, lumbar region; M51.36 Other intervertebral disc degeneration, lumbar region; F17.200 Nicotine dependence, unspecified, uncomplicated; Z88.8 Allergy status to other drugs, medicaments and biological substances
CPT/HCPCS: 99284; 36415; 85025; 80053; 73610; 73140; 73502; 73564; 72110; 71101; 73110; A9270

== ENCOUNTER 2019-09-21 19:22 | Emergency (ER) | payer MEDICARE, MEDICAID ==
--- NOTE | 2019-09-21 19:40 | ER Document Report ---
ED General - General Chief Complaint: Hand Pain Stated Complaint: THUMB PAIN Primary Care Provider: EARNEST JOSEPH MD [Primary Care Provider] - Follow up as needed Notes: Patient is a 54-year-old white female with a past medical history of extensive osteoarthritic issues with a prior surgical reattachment of the left thumb many years ago at [facility] who presents to the emergency department the chief complaint of left thumb pain and swelling began after aggressively cleaning the house 3 nights ago. She states the next day it was a little sore, she rested it and then on the third day it was very sensitive. She states is painful to move there is an area of swelling to the radial edge laterally of the left thumb that has some overlying sensitivity to light touch or wind. States it is a burning sensation in nature. She denies any decreased range of motion or weakness but admits to pain with movement. No blunt injury or trauma. TRAVEL OUTSIDE OF THE [place].S. IN LAST 30 DAYS: No - Related Data Allergies/Adverse Reactions: aspirin Allergy (Verified 08/08/19 18:19) Past Medical History - Social History Smoking Status: Current Every Day Smoker Family History: Reviewed & Not Pertinent Patient has suicidal ideation: No Patient has homicidal ideation: No Pulmonary Medical History: Reports: Hx Intubation, Hx Respiratory Failure Neurological Medical History: Reports: Hx Cerebrovascular Accident - X2 Renal/ Medical History: Reports: Hx Ovarian Cysts Malignancy Medical History: Reports: Hx Skin Cancer GI Medical History: Reports: Hx Endoscopy Musculoskeletal Medical History: Reports Hx Musculoskeletal Deformity, Reports Hx Musculoskeletal Trauma Traumatic Medical History: Reports: Hx Fractures, Hx Pneumothorax Past Surgical History: Reports: Hx Hysterectomy, Hx Orthopedic Surgery - 2 allografts left ankle, total reconstruction, left wrist, bilateral thumbs, Other - Chest tubes - Immunizations Immunizations up to date: Yes Hx Diphtheria, Pertussis, Tetanus Vaccination: No Review of Systems - Review of Systems Musculoskeletal: Joint pain -: Yes All other systems reviewed and negative Physical Exam - Vital signs Vitals: Temp Pulse Resp BP Pulse Ox 97.8 F 100 20 148/94 H 97 09/21/19 19:28 09/21/19 19:28 09/21/19 19:28 09/21/19 19:28 09/21/19 19:28 - General General appearance: Appears well, Alert In distress: None - Respiratory Respiratory status: No respiratory distress - Extremities Hand: Other - Personal Security Specialist strength 5 out of 5 in the left hand as compared with the right. Good capillary refill distal end of the left thumb. There is an area of mild swelling/nodule appearing lesion to the interphalangeal joint on the radial edge that is very sensitive to the touch, even light touch. Patient has full strength of the left thumb and full range of motion of the left thumb with and without resistance. No deformities. 2+ radial on the left. - Neurological Neuro grossly intact: Yes Cognition: Normal Orientation: AAOx4 [place] Coma Scale Eye Opening: Spontaneous María Elena Coma Scale Verbal: Oriented [place] Coma Scale Motor: Obeys Commands María Elena Coma Scale Total: 15 Speech: Normal Motor strength normal: LUE, RUE, LLE, RLE Sensory: Normal - Psychological Associated symptoms: Normal affect, Normal mood - Skin Skin Temperature: Warm Skin Moisture: Dry Skin Color: Normal Course - Re-evaluation Re-evalutation: 09/21/19 21:20 X-ray showing degenerative changes and osteophytes. There is a questionable subtle fracture of the most prominent osteophyte overlying where the area of the patient being tender. We will place her in a splint/immobilizer and she will follow-up with Dr. Coombs, her orthopedist in [place] who is affiliated with [facility] per her preference. Give her a short course of pain medications. Discussed necessary immobilization and the importance of outpatient follow-up with the hand surgeon. Advise she return here or any ER immediately with any new, persistent or worsening symptoms. She verbalized understood and agreed. - Vital Signs Vital signs: Temp Pulse Resp BP Pulse Ox 97.8 F 100 20 148/94 H 97 09/21/19 19:28 09/21/19 19:28 09/21/19 19:28 09/21/19 19:28 09/21/19 19:28 Discharge - Discharge Clinical Impression: Osteophyte Qualifiers: Osteophyte location: hand Laterality: unspecified laterality Qualified Code(s): M25.749 - Osteophyte, unspecified hand Osteoarthritis of finger Qualifiers: Laterality: unspecified laterality Qualified Code(s): M19.049 - Primary osteoarthritis, unspecified hand Joint pain Qualifiers: Joint pain location: hand Laterality: unspecified laterality Qualified Code(s): M25.549 - Pain in joints of unspecified hand Condition: Stable Disposition: HOME, SELF-CARE Instructions: Arthritis ([facility]) Additional Instructions: Please follow-up with your orthopedic doctor as discussed within the next week for reevaluation and repeat x-rays to determine today's findings or lack thereof. Please remain in the immobilizer until cleared by orthopedics. Please return here or any ER immediately with any new, persistent or worsening symptoms. Referrals: EARNEST JOSEPH MD [Primary Care Provider] - Follow up as needed
[2019-09-21] MEDS ORDERED: LIDOCAINE 2% JELLY 5 ML TUBE TOP ONE (20:27)
--- NOTE | 2019-09-21 20:38 | RADIOLOGY REPORT (SQ) ---
EXAM DESCRIPTION: CLINICAL HISTORY: 54 years Female L thumb injury COMPARISON: None. TECHNIQUE: Left thumb, three views FINDINGS: There is degenerative change with spurring and irregularity at the interphalangeal joint of the thumb. Nondisplaced fracture through marginal osteophyte is not excluded. No radiopaque foreign object noted. IMPRESSION: Degenerative change at the IP joint of the thumb with some osteophytosis. The possibility of a nondisplaced fracture through the lateral osteophyte is not excluded
[2019-09-21] MEDS ORDERED: HYDROCODONE/ACETAMINOPHEN 5-325 MG (6 TAB/ER DISP) PO PRN (21:21)
[2019-09-21 21:49] VITALS: BP 119/76
== END 2019-09-21 21:51 | disposition home or self-care (01) ==
LOC: ER 19:22
DX: M25.749 Osteophyte, unspecified hand (principal); M19.049 Primary osteoarthritis, unspecified hand; M25.549 Pain in joints of unspecified hand; M79.642 Pain in left hand; M79.89 Other specified soft tissue disorders; X58.XXXA Exposure to other specified factors, initial encounter; F17.200 Nicotine dependence, unspecified, uncomplicated
CPT/HCPCS: 99283; 73140; A9270

== ENCOUNTER 2019-11-14 17:07 | Emergency (ER) | payer MEDICARE, MEDICAID ==
[2019-11-14 19:18] LABS: APPEARANCE,URINE CLEAR; BILIRUBIN,URINE NEGATIVE (NEGATIVE); COLOR,URINE STRAW; GLUCOSE, URINE NEGATIVE (NEGATIVE); KETONES,URINE NEGATIVE (NEGATIVE); LEUKOCYTE ESTERASE,URINE NEGATIVE (NEGATIVE); NITRITE,URINE NEGATIVE (NEGATIVE); PROTEIN,URINE NEGATIVE (NEGATIVE); URINE SPECIFIC GRAVITY 1.006; UROBILINOGEN,URINE NEGATIVE mg/dL (<2.0)
[2019-11-14 19:33] LABS: URINE AMPHETAMINES SCREEN NEGATIVE; URINE BARBITURATES SCREEN NEGATIVE; URINE BENZODIAZEPINES SCREEN NEGATIVE; URINE COCAINE SCREEN NEGATIVE; URINE MARIJUANA (THC) SCREEN NEGATIVE; URINE METHADONE SCREEN NEGATIVE; URINE PHENCYCLIDINE SCREEN NEGATIVE
[2019-11-14 19:56] LABS: ABSOLUTE EOSINOPHILS # (AUTO) 0.1 10^3/uL (0.0-0.6); ABSOLUTE LYMPHOCYTES (AUTO) 1.3 10^3/uL (0.5-4.7); ABSOLUTE MONOCYTES (AUTO) 0.5 10^3/uL (0.1-1.4); ABSOLUTE NEUT (AUTO) 4.1 10^3/uL (1.7-8.2); BASOPHILS % (AUTO) 0.3 % (0-2); HEMOGLOBIN 14.3 g/dL (12.0-15.5); LYMPHOCYTES % (AUTO) 21.4 % (13-45); MEAN CORPUSCULAR HEMOGLOBIN 31.5 pg (27.0-33.4); MEAN CORPUSCULAR HGB CONC 33.2 g/dL (32.0-36.0); MEAN CORPUSCULAR VOLUME 95 fl (80-97); MONOCYTES % (AUTO) 7.9 % (3-13); PLATELET COUNT 235 10^3/uL (150-450); RED BLOOD COUNT 4.52 10^6/uL (3.72-5.28); RED CELL DISTRIBUTION WIDTH 15.6 % (11.5-14.0); SEGMENTED NEUTROPHILS % (AUTO) 69.4 % (42-78); TOTAL CELLS COUNTED % (AUTO) 100 %; WHITE BLOOD COUNT 5.9 10^3/uL (4.0-10.5)
--- NOTE | 2019-11-14 20:02 | ER Document Report ---
ED Psych Disorder / Suicide <SURJIT DONAHUE - Last Filed: 11/14/19 20:42> - General TRAVEL OUTSIDE OF THE [place].S[place] IN LAST 30 DAYS: No - HPI Quality of pain: No pain Severity: Moderate <ANIA SORTO - Last Filed: 11/15/19 03:02> - General Chief Complaint: Psych Problem Stated Complaint: IVC Time Seen by Provider: 11/14/19 18:22 Primary Care Provider: [facility] [Outside] - Follow up as needed JOAO DE LA CRUZ FNP-C [Primary Care Provider] - Follow up as needed Notes: 54 year old female arrives on IVC papers. H/O borderline PD. Here with support animal. No complaints voiced to me and alert and nontoxic. She denies SI. She has a h/o anxiety and homelessness also. (ANIA SORTO) - Related Data Allergies/Adverse Reactions: aspirin Allergy (Verified 11/14/19 19:41) Past Medical History - Social History Smoking Status: Unknown if Ever Smoked Family History: Reviewed & Not Pertinent Pulmonary Medical History: Reports: Hx Intubation, Hx Respiratory Failure Neurological Medical History: Reports: Hx Cerebrovascular Accident - X2 Renal/ Medical History: Reports: Hx Ovarian Cysts Malignancy Medical History: Reports: Hx Skin Cancer GI Medical History: Reports: Hx Endoscopy Musculoskeletal Medical History: Reports Hx Musculoskeletal Deformity, Reports Hx Musculoskeletal Trauma Traumatic Medical History: Reports: Hx Fractures, Hx Pneumothorax Past Surgical History: Reports: Hx Hysterectomy, Hx Orthopedic Surgery - 2 allografts left ankle, total reconstruction, left wrist, bilateral thumbs, Other - Chest tubes - Immunizations Immunizations up to date: Yes Hx Diphtheria, Pertussis, Tetanus Vaccination: No <ANIA SORTO - Last Filed: 11/15/19 03:02> Review of Systems - Review of Systems Constitutional: No symptoms reported EENT: No symptoms reported Cardiovascular: No symptoms reported Respiratory: No symptoms reported Gastrointestinal: No symptoms reported Genitourinary: No symptoms reported Female Genitourinary: No symptoms reported Musculoskeletal: No symptoms reported Skin: No symptoms reported Hematologic/Lymphatic: No symptoms reported Neurological/Psychological: No symptoms reported <ANIA SORTO - Last Filed: 11/15/19 03:02> Physical Exam - Vital signs Interpretation: Normal - General General appearance: Appears well, Alert - HEENT Head: Normocephalic, Atraumatic Eyes: Normal Pupils: PERRL - Respiratory Respiratory status: No respiratory distress Chest status: Nontender Breath sounds: Normal Chest palpation: Normal - Cardiovascular Rhythm: Regular Heart sounds: Normal auscultation Murmur: No - Abdominal Inspection: Normal Distension: No distension Bowel sounds: Normal Tenderness: Nontender Organomegaly: No organomegaly - Back Back: Normal, Nontender - Extremities General upper extremity: Normal inspection, Nontender, Normal color, Normal ROM, Normal temperature General lower extremity: Normal inspection, Nontender, Normal color, Normal ROM, Normal temperature, Normal weight bearing. No: Layton's sign - Neurological Neuro grossly intact: Yes Cognition: Normal Orientation: AAOx4 María Elena Coma Scale Eye Opening: Spontaneous María Elena Coma Scale Verbal: Oriented María Elena Coma Scale Motor: Obeys Commands María Elena Coma Scale Total: 15 Speech: Normal Motor strength normal: LUE, RUE, LLE, RLE Sensory: Normal - Psychological Associated symptoms: Normal affect, Normal mood - Skin Skin Temperature: Warm Skin Moisture: Dry Skin Color: Normal <ANIA SORTO P - Last Filed: 11/15/19 03:02> - Vital signs Vitals: Temp 98.1 F 11/14/19 17:10 Course - Laboratory Result Diagrams: 11/14/19 19:08 11/14/19 19:08 <SURJIT DONAHUE - Last Filed: 11/14/19 20:42> - Laboratory Result Diagrams: 11/14/19 19:08 11/14/19 19:08 - EKG Interpretation by Me EKG shows normal: Sinus rhythm Rate: Normal Rhythm: NSR - NSR Nl [place] [address] elevation or depression my interpretation. Voltage: No: Increased voltage <ANIA SORTO P - Last Filed: 11/15/19 03:02> - Re-evaluation Re-evalutation: 11/14/19 21:42 MDM The behavioral health () worker here has also seen and evaluated the pt. She (BH person) has been unable to speak with the support person who took out papers and she has asked the pt about the allegations and feels they are not likley supported of her being dangerous to herself or others. The pt has a vocational case manager who will follow up with her tomorrow and follows up daily. The pt is forward thinking and seems to be at low risk for SI/ HI. She does deny both of these. We will recind the papers and have her follow up. The pt expressed understanding of this plan. (ANIA SORTO) - Vital Signs Vital signs: Temp Pulse Resp BP Pulse Ox 98.3 F 79 20 120/68 98 11/14/19 22:09 11/14/19 22:09 11/14/19 22:09 11/14/19 22:09 11/14/19 22:09 - Laboratory Laboratory results interpreted by me: 11/14/19 11/14/19 19:08 19:08 RDW 15.6 H Sodium 136.0 L Potassium 5.3 H Est GFR ([facility]) Non-Af 57 L AST 43 H Salicylates < 1.0 L Acetaminophen < 10 L Discharge <SURJIT DONAHUE - Last Filed: 11/14/19 20:42> <ANIA SORTO - Last Filed: 11/15/19 03:02> - Discharge Clinical Impression: Paranoia, Poor hygiene, History of borderline personality disorder, History of post traumatic stress disorder, History of panic attacks Condition: Stable Disposition: HOME, SELF-CARE Additional Instructions: You have been evaluated by both medical and behavioral health teams for not taking care of self, poor hygiene, poor sleep, history of Borderline Personality Disorder/PTSD/Panic Attack. You have been deemed appropriate for discharge. While in the emergency department you received the following services: Medical screening and assessment, nursing services, dietary services, pharmacological services, one-on-one counseling and/or psychotherapy, environmental services, and continuous observation by a patient chief of safety and protection. Medication recommendations have been have been provided and are as follows: Continue home medications No more Benzodiazepines such as Diazepam and Temazepam (these cause short term memory loss with prolonged use, are highly addictive and can cause and/or exacerbate symptoms such as mood lability/paranoia/aggression/psychosis in individuals with Traumatic Brain Injury and Strokes) Add Buspar 5MG twice a day for anxiety/calming effect/depression/sleep Please take your medications as prescribe and do not stop these medications without discussion with your prescribing physician. Post-Traumatic Stress Disorder (often many mood disturbances, anxiety/panic issues) You seem to have post-traumatic stress disorder (PTSD). PTSD can cause chronic anxiety, sleeping problems, social withdrawal, and drug abuse. It can occur following a traumatic personal experience such as an accident, rape, assault, or of a loved one, or after experiencing a war or natural disaster. Symptoms may be delayed for days or even years. Emotional numbing, the inability to express grief, is usually the earliest sign. There may be apathy or agitation, aggression, and inability to perform ordinary tasks. Often there are frightening nightmares and sudden, intruding memories of the trauma. Panic attacks and feelings of guilt are common. Alcohol and drug use make post- traumatic stress symptoms worse. Medication may be temporarily necessary to combat anxiety, panic attacks, and depression. Medicine should not be considered a "cure." You must deal with the trauma and prepare to go on. Group therapy is often helpful. This helps you "talk through" the problem with others who share your symptoms. We can provide you with an appropriate referral. Follow-up: You are recommended to establish services with an outpatient mental health agency such as [facility] which you already have a family preservation caseworker through. They can offer a psychiatrist or other medical provider who specializes in psychiatric medication. Therapy can also be very helpful for PTSD. At the very least you should follow up with your Primary Care Physician. You should take medications as prescribed. You have been provided an outpatient resource sheet for local mental health agencies which also lists both mobile crisis numbers. If your s ymptoms persist or worsen contact your physician immediately, utilize mobile crisis/peer recovery/[facility] or return to the emergency department. Prescriptions: Buspirone HCl 1 tab PO BID #14 tab Referrals: JOAO DE LA CRUZ FNP-C [Primary Care Provider] - Follow up as needed [facility] [Outside] - Follow up as needed
[2019-11-14 20:16] LABS: ALBUMIN 4.6 g/dL (3.5-5.0); ALKALINE PHOSPHATASE 62 U/L (38-126); ANION GAP 5 (5-19); ASPARTATE AMINO TRANSFERASE 43 U/L (14-36); BILIRUBIN,TOTAL 0.5 mg/dL (0.2-1.3); BLOOD UREA NITROGEN 18 mg/dL (7-20); CALCIUM 9.5 mg/dL (8.4-10.2); CARBON DIOXIDE 26 mmol/L (22-30); CHLORIDE 105 mmol/L (98-107); GLUCOSE 106 mg/dL (75-110); POTASSIUM 5.3 mmol/L (3.6-5.0); TOTAL PROTEIN 7.4 g/dL (6.3-8.2)
[2019-11-14 20:17] LABS: ACETAMINOPHEN < 10 ug/mL (10-30); ALCOHOL < 10 mg/dL (NONE DETECTED); SALICYLATE < 1.0 mg/dL (2.0-20.0)
[2019-11-14 22:27] VITALS: BP 120/68
--- NOTE | 2019-11-15 07:53 | EKG REPORT ---
SEVERITY:- NORMAL ECG - SINUS RHYTHM : Confirmed by: Jo Dias MD 15-Nov-2019 07:52:53
== END 2019-11-14 22:09 | disposition home or self-care (01) ==
LOC: ER 17:07
DX: F22 Delusional disorders (principal); Z86.59 Personal history of other mental and behavioral disorders; Z88.8 Allergy status to other drugs, medicaments and biological substances
CPT/HCPCS: 36415; 80053; 80307; 81001; 85025; 93005; 93010; 99284